=== PATIENT | male | born 1980 | race Two or more races ===

== ENCOUNTER 2017-11-05 00:02 | Emergency (ER) | payer OTHER ==
--- NOTE | 2017-11-05 00:25 | CPEKG ---
Heart Rate: 46 RR Interval: 1304 P-R Interval: 180 QRSD Interval: 106 QT Interval: 456 QTC Interval: 399 P [place]: 82 QRS [place]: 71 T Wave [place]: 40 EKG Severity - OTHERWISE NORMAL ECG - EKG Impression: SINUS BRADYCARDIA EKG Impression: ST ELEV, PROBABLE NORMAL EARLY REPOL PATTERN Electronically Signed By: Jose Best 05-Nov-2017 07:12:50
[2017-11-05] MEDS ORDERED: IBUPROFEN 600 MG TAB PO ONE (00:56)
--- NOTE | 2017-11-05 01:30 | EDPHY ---
H & P Stated Complaint: "Passed out 3x after waking up" Time Seen by Provider: 11/05/17 00:42 HPI/ROS: Chief Complaint: Lightheaded HPI: 37-year-old male states that he woke up from a deep sleep this morning. He got up to go the bathroom felt very lightheaded. Patient states that he kind of stumbled and fell to the ground. He is not sure if he had a loss of consciousness. He stood up again and went to the bathroom. Again he stood up and felt a little lightheaded and stable to the ground. Again uncertain if he had a full loss of consciousness. He does state that he did take his clonidine and his hydroxyzine seen before going to bed. He had not eaten anything prior to taking these which is unusual for him. He also was out running in the heat today did not drink a lot of fluids. He is complaining of feeling thirsty right now and has a moderate left-sided throbbing headache. No nausea or vomiting. No fevers or chills. He does states that he felt very hot was sweating but there is no air conditioning in his apartment. ROS: 10 point Review of Systems is negative except as noted in the HPI. PMH: Brain injury Social History: No smoking, no alcohol, no recreational drug use Family History: non-contributory Physical Exam: Gen: Awake, Alert, No Distress HEENT: Nose: no rhinorrhea Eyes: PERRLA, EOMI Mouth: Moist mucosa Neck: Supple, no JVD Chest: nontender, lungs clear to auscultation Heart: S1, S2 normal, no murmur Abd: Soft, non-tender, no guarding Back: no CVA tenderness, no midline tenderness Ext: no edema, non-tender Skin: no rash Neuro: CN II-XII intact, Sensation grossly intact, Strength 5/5 in bilateral upper and lower extremities - Personal History Current Tetanus Diphtheria and Acellular Pertussis (TDAP): Yes - Medical/Surgical History Hx Asthma: No Hx Chronic Respiratory Disease: No Hx Diabetes: No Hx Cardiac Disease: No Hx Renal Disease: No Hx Cirrhosis: No Hx Alcoholism: No Hx HIV/AIDS: No Hx Splenectomy or Spleen Trauma: No Other PMH: "Brain injury 2002 in [place]" - Social History Smoking Status: Never smoked Constitutional: Initial Vital Signs Temperature (C) 36.7 C 11/05/17 00:03 Heart Rate 49 L 11/05/17 00:03 Respiratory Rate 20 11/05/17 00:03 Blood Pressure 110/60 11/05/17 00:03 O2 Sat (%) 96 11/05/17 00:03 O2 Delivery Mode Room Air Allergies/Adverse Reactions: No Known Allergies Allergy (Unverified 11/05/17 00:03) Home Medications: Medication Instructions Recorded Ranitidine HCl [Ranitidine HCl 150 150 mg PO DAILY 10/19/11 mg] Clonidine 11/05/17 hydrOXYzine HCL 11/05/17 Medical Decision Making - Diagnostics EKG Interpretation: ECG time 12:23 a.m., sinus bradycardia with a rate of 46, there is early repolarization pattern, normal axis, no acute ischemic changes. Normal intervals. ED Course/Re-evaluation: Patient is improved after oral hydration ibuprofen. I think his symptoms are secondary to his medications and dehydration. He is very physically fit and runs every day and his heart rate is likely at its baseline. There is probably some affects from the clonidine av cautioned him to re-evaluate using that as a sleep aid medication. He is otherwise well-appearing. Will plan for discharge with follow-up with primary care physician as an outpatient, return for any concerns. - Data Points Medications Given: Discontinued Medications Ibuprofen (Motrin) 600 mg PO EDNOW ONE Stop: 11/05/17 00:57 Last Admin: 11/05/17 00:58 Dose: 600 mg Departure - Departure Disposition: Home, Routine, Self-Care Clinical Impression: Dehydration, Medication reaction Condition: Good Instructions: Dehydration (ED) Additional Instructions: Make sure to drink at least 8, 8 oz glasses of water a day. You will need to drink more on hot days. Discussed with your doctor continuing clonidine as this might be affecting your heart rate. Return to the emergency department for further fainting, chest pain, shortness of breath, or any other concerns. [facility] - As per Instructions
[2017-11-05 04:47] VITALS: BP 103/63
== END 2017-11-05 04:46 | disposition home or self-care (01) ==
DX: E86.0 Dehydration (principal); T46.5X5A Adverse effect of other antihypertensive drugs, initial encounter; T43.595A Adverse effect of other antipsychotics and neuroleptics, initial encounter

== ENCOUNTER 2018-11-05 06:10 | Emergency (ER) | payer OTHER | END 2018-11-05 06:28 | disposition left against medical advice (07) ==